=== PATIENT | male | born 1980 | race Caucasian/White ===

== ENCOUNTER 2024-02-11 09:08 | Outpatient (CLI) | payer OTHER, SELFPAY ==
--- NOTE | 2024-02-11 10:18 | W.ANESCHARGE ---
Anesthesia Charges Start Date/Time Anesthesia Start Date: 02/11/24 Anesthesia Start Time: 09:50 Stop Date/Time Anesthesia Stop Date: 02/11/24 Anesthesia Stop Time: 10:16
--- NOTE | 2024-02-11 10:25 | W.ANESCHARGE ---
Anesthesia Charges Start Date/Time Anesthesia Start Date: 02/11/24 Anesthesia Start Time: 09:50 Stop Date/Time Anesthesia Stop Date: 02/11/24 Anesthesia Stop Time: 10:16
== END 2024-02-11 09:09 | disposition home or self-care (01) ==
LOC: OP CLINIC 09:09
PROVIDERS: PCP Internal Medicine; Visit Provider Internal Medicine
DX: Z12.11 Encounter for screening for malignant neoplasm of colon (principal); K64.8 Other hemorrhoids; Z86.010 Personal history of colon polyps
CPT/HCPCS: 00812; 45378; J2704